=== PATIENT | female | born 1990 | race Caucasian/White ===

== ENCOUNTER 2017-05-21 09:25 | Emergency (ER) | payer OTHER, SELFPAY ==
[2017-05-21 09:26] VITALS: BP 150/35; PULSE 86; RESP 16; TEMP 36.8; O2SAT 98; BMI 35.6
--- NOTE | 2017-05-21 10:03 | ED.VISSUMM ---
- ER Visit Summary Date of Service: 05/21/17 Chief Complaint: [] Back pain after lifting heavy laundry basket History of Present Illness: The patient is a 26 F [] reports she basically lifted a laundry basket that apparently was heavier than she should thought she threw the close up in the air to shuffle them and she felt immediate pain to her back. She had no direct trauma she has been no paresthesias she was feeling fine before this event. She indicates the pain is worse when she turns breathes bends over this occurred this morning, she did not take them for the pain came in for evaluation. She has no no paresthesias and she sits perfectly still she feels back to baseline Physical Examination: [] Vitals are normal she is in no distress she is sitting in the chair in no distress when asked her to stand turn bend over she has pain to the mid T-spine level. Her head exam neck chest abdomen unremarkable lungs are clear heart tones are normal the abdomen soft nontender upper lower extreme is marked full range of motion is able to stand and walk around walk around the room without difficulty, she is a very vague pain to the mid T-spine region musculature, no real T spine pain no lumbar no cervical pain she is awake and alert walking around the room Test Results: [] Emergency Department Course and Treatment: [] Long conversation with the patient discussed imaging studies etc. she declined them she is basically here because of the pain she will be started on Toradol IM, Naprosyn Flexeril [place] No. 4 for bedtime to follow-up with her doctor return for change in symptoms Treatment Plan: [] Disposition: [] Stable home Impression: [] Back pain after lifting laundry basket This note was generated with [employer] dictation software. It may contain incorrect words, spelling, and punctuation that were not noted in review of the chart prior to signing ED Disposition - Plan for ED Patient: Chief Complaint: Back Referrals: [facility] Doctor,Out of [Primary Care Provider] -
--- NOTE | 2017-05-21 10:06 | ED.DCSUM_ITS ---
- ER Visit Summary Date of Service: 05/21/17 Chief Complaint: [] Back pain after lifting heavy laundry basket History of Present Illness: The patient is a 26 F [] reports she basically lifted a laundry basket that apparently was heavier than she should thought she threw the close up in the air to shuffle them and she felt immediate pain to her back. She had no direct trauma she has been no paresthesias she was feeling fine before this event. She indicates the pain is worse when she turns breathes bends over this occurred this morning, she did not take them for the pain came in for evaluation. She has no no paresthesias and she sits perfectly still she feels back to baseline Physical Examination: [] Vitals are normal she is in no distress she is sitting in the chair in no distress when asked her to stand turn bend over she has pain to the mid T-spine level. Her head exam neck chest abdomen unremarkable lungs are clear heart tones are normal the abdomen soft nontender upper lower extreme is marked full range of motion is able to stand and walk around walk around the room without difficulty, she is a very vague pain to the mid T-spine region musculature, no real T spine pain no lumbar no cervical pain she is awake and alert walking around the room Test Results: [] Emergency Department Course and Treatment: [] Long conversation with the patient discussed imaging studies etc. she declined them she is basically here because of the pain she will be started on Toradol IM, Naprosyn Flexeril [address] No. 4 for bedtime to follow-up with her doctor return for change in symptoms Treatment Plan: [] Disposition: [] Stable home Impression: [] Back pain after lifting laundry basket This note was generated with [employer] dictation software. It may contain incorrect words, spelling, and punctuation that were not noted in review of the chart prior to signing ED Disposition - Plan for ED Patient: Chief Complaint: Back Referrals: [facility] Doctor,Out of [Primary Care Provider] -
--- NOTE | 2017-05-21 10:06 | ED.DEP ---
ED Disposition - Plan for ED Patient: Chief Complaint: Back Instructions: ED Spasm Back No Trauma Prescriptions: Hydrocodone Bitart/Apap 5-325 [[place] 5/325] 1 tab PO QHS #4 tab Naproxen [Naprosyn] 500 mg PO BID PRN #20 tab Cyclobenzaprine [Flexeril] 10 mg PO BID #10 tab Referrals: [facility] Doctor,Out of [NON-STAFF] - Joshua Epps DO [STAFF PHYSICIAN] -
--- NOTE | 2017-05-21 10:10 | DCINST.ED_ITS ---
ED Disposition - Plan for ED Patient: Chief Complaint: Back Instructions: ED Spasm Back No Trauma Prescriptions: Hydrocodone Bitart/Apap 5-325 [[place] 5/325] 1 tab PO QHS #4 tab Naproxen [Naprosyn] 500 mg PO BID PRN #20 tab Cyclobenzaprine [Flexeril] 10 mg PO BID #10 tab Referrals: [facility] Doctor,Out of [NON-STAFF] - Joshua Epps DO [STAFF PHYSICIAN] -
[2017-05-21] MEDS: Ketorolac 60 MG/2 ML Vial IM (10:22)
[2017-05-21 10:51] VITALS: BP 136/81; RESP 18
== END 2017-05-21 10:56 | disposition home or self-care (01) ==
PROVIDERS: Emergency Provider Emergency Medicine; Family Provider Family Medicine; PCP Family Medicine
DX: M54.6 Pain in thoracic spine (principal); X50.0XXA Overexertion from strenuous movement or load, initial encounter; J45.909 Unspecified asthma, uncomplicated
CPT/HCPCS: 96372; 99283

== ENCOUNTER → 2020-02-01 13:30 | Outpatient (CLI) | payer OTHER, SELFPAY ==
[2020-02-01 13:21] VITALS: BMI 33.6
[2020-02-04 20:07] LABS: Chlamydia By Nucleic Acid AMP Negative (Negative)
[2020-02-04 21:35] LABS: HPV Reflexed? NOT INDICATED
[2020-02-04 21:36] LABS: Gonococcus By Nucleic Acid AMP Negative (Negative)
== END ==
PROVIDERS: PCP Family Medicine; Referring Provider Nurse Practitioner Women's Health; Visit Provider Nurse Practitioner Women's Health
DX: Z12.4 Encounter for screening for malignant neoplasm of cervix (principal); Z11.3 Encounter for screening for infections with a predominantly sexual mode of transmission
CPT/HCPCS: 87491; 87591; 88175; G0145

== ENCOUNTER → 2020-02-13 10:09 | Outpatient (CLI) | payer OTHER, SELFPAY ==
[2020-02-01 13:21] VITALS: BMI 33.6
--- NOTE | 2020-02-13 10:17 | US_ITS ---
STUDY: ULTRASOUND OF THE FEMALE PELVIS - COMPLETE REASON FOR EXAM: Female, 29 years old. MENORRHAGIA -- DYSMENORRHEA -- LMP 02/10/20 -- HX OF TUBAL LIGATION 2013 LMP: 02/10/2020 TECHNIQUE: Transabdominal and Transvaginal TECHNICAL QUALITY: Adequate. COMPARISON: None. FINDINGS: The uterus is retroverted and is in a midline position. The uterus measures 10.7 x 5.2 x 3.3 cm. Normal uterine cervix. The endometrium measures 7 mm in thickness, and is fluid distended. There is no demonstrated endometrial mass. There is no demonstrated myometrial mass. I.U.D. - The patient does not have an I.U.D. The right ovary is visualized. The right ovary measures 3.2 x 2.4 x 2.3 cm. There is no right ovarian cyst or ovarian mass. There is no visualized right adnexal mass or complex lesion. There is normal arterial and normal venous vascularity. The left ovary is visualized. The left ovary measures 2.5 x 2.2 x 1.7 cm. There is no left ovarian cyst or ovarian mass. There is no visualized left adnexal mass or complex lesion. There is normal arterial and normal venous vascularity. There is no fluid in the cul-de-sac. The pre void volume of the bladder was 623 ml. US/Transvaginal Non- IMPRESSION: Fluid distended endometrium. Otherwise, unremarkable exam Electronically Signed: Alessandro Bañuelos DO at 11:48 EST Tel , Service support ,
--- NOTE | 2020-02-13 10:17 | US_ITS ---
STUDY: ULTRASOUND OF THE FEMALE PELVIS - COMPLETE REASON FOR EXAM: Female, 29 years old. MENORRHAGIA -- DYSMENORRHEA -- LMP 02/10/20 -- HX OF TUBAL LIGATION 2013 LMP: 02/10/2020 TECHNIQUE: Transabdominal and Transvaginal TECHNICAL QUALITY: Adequate. COMPARISON: None. FINDINGS: The uterus is retroverted and is in a midline position. The uterus measures 10.7 x 5.2 x 3.3 cm. Normal uterine cervix. The endometrium measures 7 mm in thickness, and is fluid distended. There is no demonstrated endometrial mass. There is no demonstrated myometrial mass. I.U.D. - The patient does not have an I.U.D. The right ovary is visualized. The right ovary measures 3.2 x 2.4 x 2.3 cm. There is no right ovarian cyst or ovarian mass. There is no visualized right adnexal mass or complex lesion. There is normal arterial and normal venous vascularity. The left ovary is visualized. The left ovary measures 2.5 x 2.2 x 1.7 cm. There is no left ovarian cyst or ovarian mass. There is no visualized left adnexal mass or complex lesion. There is normal arterial and normal venous vascularity. There is no fluid in the cul-de-sac. The pre void volume of the bladder was 623 ml. US/Pelvic (Non ) IMPRESSION: Fluid distended endometrium. Otherwise, unremarkable exam Electronically Signed: Alessandro Bañuelos DO at 11:48 EST Tel , Service support ,
== END ==
LOC: OPUS 10:12
PROVIDERS: PCP Family Medicine; Referring Provider Nurse Practitioner Women's Health; Visit Provider Nurse Practitioner Women's Health
DX: N94.6 Dysmenorrhea, unspecified (principal); N92.0 Excessive and frequent menstruation with regular cycle
CPT/HCPCS: 76830; 76856

== ENCOUNTER 2022-01-30 07:49 | Emergency (ER) | payer OTHER, SELFPAY ==
[2022-01-30 07:50] VITALS: BP 140/104; PULSE 108; RESP 18; TEMP 36.6; O2SAT 98; BMI 37.0
[2022-01-30 08:15] VITALS: O2SAT 98
--- NOTE | 2022-01-30 08:22 | RAD_ITS ---
STUDY: X-RAY CHEST REASON FOR EXAM: Female, 31 years old. Nonproductive cough and wheezing, COVID 3 weeks ago TECHNIQUE: PA and lateral views of the chest. COMPARISON: None. FINDINGS: EKG electrodes are seen. Hyperinflation. The lungs are clear. There is no demonstrated pleural abnormality. Normal size heart. Normal mediastinum and mega. Normal visualized pulmonary arteries. Normal visualized aortic arch and descending thoracic aorta. Normal visualized thoracic spine. Normal visualized ribs, clavicles, and shoulders. There is no demonstrated abnormality of the visualized soft tissue structures of the upper abdomen. RAD/Chest PA and Lateral IMPRESSION: Hyperinflation. The lungs are clear. Electronically Signed: Mann Baez MD at 8:45 EST ,
[2022-01-30] MEDS: Albuterol 2.5 MG/3 ML VIAL.NEB. INHALATION ×3 (08:25→09:55)
[2022-01-30 08:26] VITALS: PULSE 94; RESP 17; O2SAT 99
--- NOTE | 2022-01-30 08:31 | EDS_ITS ---
HPI History of Present Illness Chief Complaint: Shortness of Breath Detail of Chief Complaint: Shortness of breath, nonproductive cough and wheezing Informant: patient Onset/Context/Timing Onset: Days (Onset of illness 4 to 5 days ago) Context: sudden Timing: Continuous and Waxes and wanes Quality: Positive for Dyspnea on exertion and Wheezing; Negative for Orthopnea or PND Current Severity: Mild Maximum Severity: Moderate Worsened by: Exertion and Coughing; Not Worsened By Lying flat Relieved by: Nothing Associated Symptoms cough, rhinorrhea, fever and sore throat; Negative for post nasal drip, ear pain, subjective, chills, sweats, clear sputum, white sputum, yellow sputum or green sputum Chest Pain: Positive for None Narrative Narrative: Patient is a 31-year-old female with history of asthma who was diagnosed with COVID 3 weeks ago. She states over the past 4 to 5 days she has had runny nose, congestion, sore throat and a nonproductive cough. She has been using her inhaler more frequently. He has not been on prednisone in the last 3 to 6 months. She had a documented fever of 103 3 days ago. She denies ear pain or drainage. She denies headache. She denies ocular, visual or auditory symptoms. She denies neck pain or stiffness. She does complain of tightness in her chest. There is no history of VTE. Denies leg pain, swelling discoloration. S he does report nausea without vomiting or diarrhea PE Risk Factors: Negative for Cancer, OCP + Smoking + > 35, Prior DVT or PE, Recent immobilization, Recent surgery or Recent travel Prior similar symptoms: Yes Recent Illness/Hospitalization: No PFSH PFSH Medical History Anxiety Asthma COVID-19 Weight gain Home Medications desogestrel 0.15 mg-ethinyl estradiol 0.03 mg tablet (Apri) 1 tab PO QDAY #84 tabs 03/22/21 [Rx Last Taken Unknown] albuterol sulfate 90 mcg/actuation aerosol inhaler 2 puff inhalation Q6H PRN shortness of breath or wheezing #8.5 grams 08/08/21 [Rx Last Taken Unknown] budesonide-formoterol HFA 160 mcg-4.5 mcg/actuation aerosol inhaler 2 puff inhalation BID #10.2 grams 08/08/21 [Rx Last Taken Unknown] cetirizine 10 mg capsule (Zyrtec) 10 mg PO DAILY #30 caps 08/08/21 [Rx Last Taken Unknown] montelukast 10 mg tablet (Singulair) 10 mg PO DAILY #30 tabs 08/08/21 [Rx Last Taken Unknown] inhalational spacing device (Aerochamber MV spacer) #1 ea 01/30/22 [Rx Last Taken Unknown] prednisone 20 mg tablet 60 mg PO DAILY #15 TABLETS 01/30/22 [Rx Last Taken Unknown] Allergy/AdvReac Type Severity Reaction Status Date / Time Penicillins Allergy Rash Verified 01/30/22 07:50 Family History Mother Endometriosis Grandmother Endometriosis Surgical History History of cholecystectomy History of tubal ligation Hx of tonsillectomy Social History household members: significant other and children number of children: 2 current occupational status: employed current occupation: [employer] history of recent travel: No sexually active: Yes Smoking Status: Never smoker alcohol intake: current alcohol intake frequency: a few times a month substance use type: does not use what type of physical activity do you participate in: walking seatbelt use: always do you feel safe at home: Yes additional social history: - Azael CASTAÑEDA GARRY ED Constitutional Constitutional ED: Reports fever(s); Denies chills, sweats or weight loss Eyes Eyes: Denies blurry vision, change in vision or diplopia ENT ENT ED: Reports rhinorrhea and sore throat; Denies ear pain Cardiovascular Cardiovascular: Denies chest pain, orthopnea, palpitations, paroxysmal nocturnal dyspnea or racing heartbeat Respiratory/Chest Respiratory/Chest: Reports cough, dyspnea and dyspnea on exertion; Denies orthopnea, paroxysmal nocturnal dyspnea or sputum Gastrointestinal Gastrointestinal: Reports nausea; Denies abdominal pain, constipation, diarrhea, melena or vomiting Genitourinary Genitourinary ED: Denies dysuria, hematuria or urinary frequency Musculoskeletal Musculoskeletal: Denies arthralgias, back pain, myalgias or neck pain Integumentary Denies Abrasions or rash Neurologic Neurologic: Denies headache(s), paresthesias or weakness Endocrine Endocrinology: Denies cold intolerance or heat intolerance Hematologic/Lymphatic Hematologic/Lymphatic: Denies easy bleeding or easy bruising EXAM Physical Exam Const Vital Signs: 01/30/22 07:50 01/30/22 08:15 01/30/22 08:26 Temperature 97.9 F Temperature Source Temporal Pulse Rate 108 H 94 Respiratory Rate 18 17 Respiratory Effort Short of Breath Respiratory Pattern Tachypnea Blood Pressure 140/104 H Blood Pressure Mean 116 Pulse Ox 98 Oxygen Delivery Method Room Air Room Air 01/30/22 08:26 Temperature Temperature Source Pulse Rate Respiratory Rate Respiratory Effort Respiratory Pattern Blood Pressure Blood Pressure Mean Pulse Ox 99 Oxygen Delivery Method Room Air Positive well nourished, well developed and obese General Appearance ED: well developed and NAD Nutritional Appearance: obese HEENT Reports moist mucous membranes HEENT Narrative: Head is atraumatic normocephalic. Ears normal. TMs normal. Nares patent. No evidence of epistaxis. No obvious drainage. Posterior pharynx out erythema or exudate. Uvula midline. No deviation tongue with protrusion. Eyes PERRL and EOMs intact bilaterally General Eye ED: Negative for pale conjunctiva or scleral icterus Neck no lymphadenopathy, supple, no meningeal signs and no JVD Resp normal respiratory effort and No clear to auscultation bilaterally Auscultation: wheezes expiratory wheezes and throughout Cardio regular rhythm, S1 normal heart sound, S2 normal heart sound and no murmurs Rate: tachycardic GI non-tender, non-distended and no masses Palpation: soft Extremity normal to inspection General Extremety ED: Negative for edema or tenderness General Extremity: Negative for edema Neuro oriented x3, CN's II-XII intact bilaterally and no sensory deficits noted Sensorium / Orientation: alert Psych mental status grossly normal Skin no wounds and skin turgor normal MDM MDM MDM Narrative Medical decision making narrative: Suspect patient has acute bronchitis exacerbation of her asthma. Will obtain chest x-ray to evaluate for pneumonia. Patient was treated with albuterol x3. Vital signs were remarkable for tachycardia initially. Patient was assessed at 0925. This is after her second treatment. Coughing has improved markedly. There is increased air movement. There is no expiratory wheezing noted. She rarely uses an inhaler. She does not have a spacer. Radiography Chest X-Ray - ED: 2 View and Read by ED Physician (2 view chest x-ray independently interpreted by me is negative. There is normal cardiac silhouette and size. Perihilar regions normal. Lung parenchyma is normal. Osseous trucks is normal.) Diagnostic Testing: Clinical Impression(s) from Imaging Studies Chest X-Ray 01/30/22 08:22 IMPRESSION: Hyperinflation. The lungs are clear. Electronically Signed: Mann Baez MD at 8:45 EST , Rhythm Strip Rhythm Strip: Sinus Tach Rate: 102 Ectopy: None Discharge Plan Triage Chief Complaint: Shortness of Breath ED Provider: Dorian Lloyd Dx/Rx/DC Orders Clinical Impression: Upper respiratory infection with cough and congestion, Asthma exacerbation Instructions: ED URI, Viral, No Abx (Adult) Prescriptions: New (DME) Aerochamber MV Spacer See Rx Instructions .Route Qty: 1 0RF Rx Instructions: As directed prednisone 20 mg tablet 60 mg PO DAILY Qty: 15 0RF No Action desogestrel-ethinyl estradiol [Apri] 0.15-0.03 mg tablet 1 tab PO QDAY Qty: 84 4RF albuterol sulfate 90 mcg/actuation HFA aerosol inhaler 2 puff INHALATION Q6H PRN (Reason: shortness of breath or wheezing) Qty: 8.5 12RF Zyrtec 10 mg capsule 10 mg PO DAILY Qty: 30 12RF montelukast [Singulair] 10 mg tablet 10 mg PO DAILY Qty: 30 12RF budesonide-formoterol 160-4.5 mcg/actuation HFA aerosol inhaler 2 puff inhalation BID Qty: 10.2 12RF Primary Care Provider: Gabbie Cortez NP Referrals: Gabbie Cortez NP, BUSINESS PROCESS REPRESENTATIVE-C [Primary Care Provider] - 10-14 Days if not better Activity Restrictions/Additional Instructions: Use spacer with your inhaler. Recommend every 2-4 hours while awake for the next 2 to 3 days and every 4-6 hours as needed for cough and wheezing. 4 to 6 puffs albuterol metered-dose inhaler with a spacer is equivalent to a aerosol treatment. You may repeat every 15 minutes x 3. If you are still having difficulty breathing recommend coming to the emergency department. Disposition Disposition: Home, Self Care
[2022-01-30 10:09] VITALS: BP 140/87; PULSE 82; RESP 16; O2SAT 96
== END 2022-01-30 10:09 | disposition home or self-care (01) ==
PROVIDERS: Emergency Provider Emergency Medicine; PCP Nurse Practitioner; Visit Provider Emergency Medicine
DX: J45.901 Unspecified asthma with (acute) exacerbation (principal); J06.9 Acute upper respiratory infection, unspecified; F41.9 Anxiety disorder, unspecified; Z79.899 Other long term (current) drug therapy
CPT/HCPCS: 71046; 94640; 99284

== ENCOUNTER → 2023-02-14 | Outpatient (CLI) | payer OTHER, SELFPAY ==
--- NOTE | 2023-02-14 09:44 | US_ITS ---
STUDY: SUPERFICIAL ULTRASOUND - SOFT TISSUE NECK REASON FOR EXAM: Female, 32 years old. lump R lat neck TECHNIQUE: A superficial ultrasound was performed with real-time and static love-scale imaging. COMPARISON: None. FINDINGS: Multiple longitudinal and transverse ultrasound images of the right-sided neck confirm lymphadenopathy with 3 discrete lymph nodes measuring 1.1 x 3.1 cm, 0.7 x 2.0 cm, 0.7 x 2.[address] of the neck with contrast would be useful. US/Head/Neck Soft Tissue IMPRESSION: Ultrasound confirms right jugular lymphadenopathy in correlation with CT the neck with contrast would be useful for Electronically Signed: Walt Jvaier MD at 19:12 EST ,
== END | disposition home or self-care (01) ==
LOC: US 09:41
PROVIDERS: PCP Nurse Practitioner; Referring Provider Nurse Practitioner; Visit Provider Nurse Practitioner
DX: R59.1 Generalized enlarged lymph nodes (principal)
CPT/HCPCS: 76536

== ENCOUNTER → 2023-03-06 | Outpatient (CLI) | payer OTHER, SELFPAY ==
--- NOTE | 2023-03-06 17:51 | CT_ITS ---
STUDY: CT SOFT TISSUE NECK WITH CONTRAST REASON FOR EXAM: Female, 32 years old. 3 dicrete lymphnodes enlarged -- no pre auth needed REf [id number] RADIATION DOSAGE (If Supplied By Facility): CTDIvol = ( 15.49 ) mGy, DLP = ( 506.91 ) mGycm TECHNIQUE: The patient was scanned in a multi-detector CT scanner. High resolution transaxial imaging was performed following intravenous administration of IV 100mL Isovue-370. Sagittal and coronal images were reconstructed. Individualized dose optimization techniques were used for this CT. COMPARISON: Ultrasound 02/14/2023 FINDINGS: Normal bilateral parotid glands. Normal bilateral visual and stock associate spaces. Normal bilateral parapharyngeal spaces. Normal bilateral carotid spaces. Normal bilateral sublingual and submandibular glands and spaces. Normal visualized nasopharynx. Normal retropharyngeal space. Normal perivertebral space. Normal visualized bilateral faucial tonsils. The visualized tongue, tongue base and oropharynx are normal. There is bilateral jugular lymphadenopathy at the level of fluoroscopy the mouth as well as several small bilateral posterior triangle lymph nodes. The largest discrete lymph node is a right jugular lymph node at the level of fluoroscopy the mouth measuring 1.4 x 2.4 cm likely corresponding to the largest lymph node seen on recent ultrasound. There is no demonstrated solid or cystic mass lesion. There is no abnormal contrast enhancement. Normal epiglottis, bilateral vallecula and hypopharynx. The pre-epiglottic and paraglottic adipose spaces are normal. Normal visualized bilateral piriform sinuses, aryepiglottic folds, vocal cords, and arytenoid-cricoid articulations. Normal subglottic trachea. Normal bilateral lobes of the thyroid gland. Normal visualized pulmonary apices. Normal visualized paranasal sinuses. Normal visualized cervical spine. CT/Soft Tissue Neck WITH Contrast IMPRESSION: Bilateral jugular lymphadenopathy at the level of fluoroscopy the mouth with some prominent but normal sized bilateral posterior triangle lymph nodes. These may be reactive but metastatic disease or lymphoma cannot be excluded. No obvious mucosal mass is identified. Electronically Signed: Walt Javier MD at 23:03 EST ,
== END | disposition home or self-care (01) ==
LOC: CT 17:49
PROVIDERS: PCP Nurse Practitioner; Visit Provider Nurse Practitioner
DX: R59.1 Generalized enlarged lymph nodes (principal)
CPT/HCPCS: 70491; Q9967

== ENCOUNTER 2023-03-26 07:34 | Outpatient (CLI) | payer OTHER, SELFPAY ==
[2023-03-26] VITALS (14 sets, daily range): BP systolic 113–131; BP diastolic 75–94; PULSE 62–79; RESP 14–19; TEMP 37; O2SAT 95–100
--- NOTE | 2023-03-26 | IMM_PTH ---
PATHOLOGY RESULTS PATIENT: JHOAN BROOKS LOC: CT U#:[id number] AGE/SX: 32/F ROOM: RE03/26/[address]: EZ Aguero : 1990 BED: DIS: 03/26/2023 SPEC #: [id number] RECD: 03/27/23 13:36 STATUS: JAUN REQ #: [id number] ALBERTO: 03/26/23 00:[address]: Gabbie Cortez NP DEPT: IMMUNOHISTOCHEMISTRY RECD BY: Cari Garber ENTERED: 03/27/23 13:39 SP TYPE: IMMUNO Tissues: Lymph node of neck, NOS Procedures: BCL-2 (add) BCL-6 (add) CD10 (add) CD20 (add) CD23 (add) CD3 (add) CD43 (add) CD45 (add) CD5 (add) CD79A (add) CYCLIN (add) KI-67 (initial) PHYSICIAN & INSTITUTION [address] [address] SPECIMEN INFORMATION: Tissue Source: Right cervical lymph node Clinical Info: Enlarged right lateral lymph node Specimen Number: [id number] CPT code: 40647, 87639 x11 METHODOLOGY: Deparaffinized sections of prefer/formalin-fixed tissue or PAP/DQ stained slides are incubated with monoclonal/polyclonal antibodies/oligonucleotide probes. Localization is made via biotin free immunoperoxidase method. Appropriate controls are performed and reacted as expected. Results on target cell population are indicated in the following table: RESULTS: ANTIBODY / CLONE RESULT CD3 (PS1) positive CD5 (SP10) positive CD20 (L26) positive CD43 (L60) positive CD45 (RP2/18) positive CD79a (11E3) positive CD10 (56C6) negative CD23 (1B12) negative BCL-2 (bcl-2/100/D5) positive BCL-6 (BQ502W/A8) negative Cyclin D1/BCL-1 (SP4) negative Ki-67 (30-9) positive, low These tests were developed and their performance characteristics determined by [facility]. They may not have been cleared or approved by the U.S. Food and Drug Administration. The FDA has determined that such clearance or approval is not necessary. The above immunohistochemical/dualISH markers are ordered and reviewed by the Pathologist. INTERPRETATION: Right cervical lymph node, CT-guided core biopsy: Benign lymph node tissue. SJ:ac 03/28/2023 Case has been reviewed in consultation with Dr. Bell who concurs with the above diagnosis. IDC:AM
--- OUTSIDE RECORDS SUMMARY | 2023-03-26 07:48 | XMS RPT_ITS | CCD ---
Author Name Unknown Address [address] [place] [address] Organization [facility] Care Team Providers Care Machine Sizer Name Role Phone AMBROSIO MILTON Unavailable Unavailable AMBROSIO MILTON Unavailable Unavailable NO REFERRING DR Unavailable Unavailable AMBROSIO MILTON Unavailable Unavailable AMBROSIO MILTON Unavailable Unavailable Adam Valadez Primary Care Provider Allergies Allergy Classification Reported Allergen(s) Allergy Type Date of Onset Reaction(s) Facility (2 sources) Penicillins; Translations: [PENICILLINS] Propensity to adverse reactions to drug (disorder) 1 [facility] Other [place] [facility] Medications Current Medications Medication Drug Class(es) Dates Sig (Normalized) Sig (Original) albuterol 0.83 mg/ml inhalant solution (1 source) beta2-Adrenergic Agonist albuterol (PROVENTIL) (2.5 MG/3ML) 0.083% nebulizer solution Take 2.5 mg by nebulization every 6 hours as needed for Wheezing 0 Active albuterol sulfate HFA 108 (90 Base) MCG/ACT inhaler (1 source) Start: 09-03-2019 End: 06-13-2030 take 2 puff(s) by inhalation every six hours as needed for wheezing albuterol sulfate HFA 108 (90 Base) MCG/ACT inhaler Inhale 2 puffs into the lungs every 6 hours as needed for Wheezing 1 Inhaler 11 09/03/2019 06/13/2030 Active cetirizine hydrochloride 10 mg oral tablet (1 source) Histamine-1 Receptor Antagonist Start: 07-24-2019 take 1 tablet by mouth once daily as needed cetirizine (ZYRTEC) 10 MG tablet Take 1 tablet by mouth daily as needed for Allergies 90 tablet 3 07/24/2019 Active 168 hr ethinyl estradiol 0.68583 mg/hr / norelgestromin 0.28216 mg/hr transdermal system (1 source) Progestin, Estrogen Start: 05-05-2020 apply 1 dose transdermal route every week XULANE 150-35 MCG/24HR Place 1 patch onto the skin once a week 0 05/05/2020 Active montelukast 10 mg oral tablet (1 source) Leukotriene Receptor Antagonist Start: 06-03-2019 take 1 tablet by mouth once daily montelukast (SINGULAIR) 10 MG tablet Take 1 tablet by mouth nightly 30 tablet 11 06/03/2019 Active naproxen 500 mg oral tablet (1 source) Nonsteroidal Anti-inflammatory Drug Start: 06-13-2020 End: 07-13-2020 take 1 tablet by mouth twice daily at mealtime naproxen (NAPROSYN) 500 MG tablet Indications: Mid-back pain, acute Take 1 tablet by mouth 2 times daily (with meals) 60 tablet 0 06/13/2020 07/13/2020 Active Problems Active Problems Problem Classification Problem Date Documented Date Episodic/Chronic Anxiety disorders (1 source) Anxiety; Translations: [Situational anxiety] 12-01-2014 Chronic Asthma (2 sources) Unspecified asthma, uncomplicated; Translations: [Asthmatic bronchitis] Onset: 12-02-2016 12-01-2014 Chronic Other skin disorders (1 source) Acne; Translations: [Acne] 12-03-2016 Episodic Other upper respiratory disease (1 source) Allergic rhinitis; Translations: [Allergic rhinitis] 12-01-2014 Chronic Spondylosis; intervertebral disc disorders; other back problems (1 source) Acute thoracic back pain; Translations: [Mid-back pain, acute] Episodic Unclassified (1 source) Other specified postprocedural states; Translations: [OTH SPECIFIED POSTPROCED] Onset: 12-02-2016 Past or Other Problems Problem Classification Problem Date Documented Da te Episodic/Chronic Acute bronchitis (1 source) Acute bronchitis, unspecified; Translations: [ACUTE BRONCHITIS UNSPECI] Onset: 12-02-2016 Episodic Diabetes or abnormal glucose tolerance complicating ; childbirth; or the puerperium (1 source) Personal history of gestational diabetes; Translations: [History of gestational diabetes] Onset: 05-14-2019 05-14-2019 Episodic Other aftercare (1 source) Other detention (current) drug therapy; Translations: [OTH HALF-WAY CURRENT DR] Onset: 12-02-2016 Episodic Other lower respiratory disease (2 sources) Cough; Translations: [COUGH] Onset: 12-02-2016 Episodic Other nutritional; endocrine; and metabolic disorders (1 source) Failure to lose weight; Translations: [Unable to lose weight] Onset: 05-14-2019 05-14-2019 Episodic Results Test Name Value Interpretation Reference Range Facil ity Encounters Encounter Date Encounter Type Care Provider Facility Start: 06-13-2020 End: 06-13-2020 Subsequent hospital visit by physician Alejandra Christopher Work Phone: [facility] X-Ray Procedures Date Procedure Procedure Detail Performing Clinician Start: 04-25-2018 Follow-up visit Plan of Treatment Date Care Activity Detail Author Start: 11-10-2022 DTaP/Tdap/Td vaccine (2 - Td) DTaP/Tdap/Td vaccine (2 - Td) [facility] Work Phone: Start: 11-17-2019 Influenza vaccination Flu vaccine (# 1) [facility] Work Phone: Start: 12-14-2017 Screening for malign ant neoplasm of cervix Cervical cancer screen [facility] Work Phone: Start: 2006 COVID-19 Vaccine (1) COVID-19 Vaccin e (1) [facility] Work Phone: Start: 2005 HIV screening HIV screen [facility] Work Phone: Start: 1996 Pneumococcal 0-64 ye ars Vaccine (1 of 1 - PPSV23) Pneumococcal 0-64 years Vaccine (1 of 1 - PPSV23) [facility] Work Phone: Start: 06-24-1991 Varicella vaccine (1 of 2 - 2-dose childhood series) Varicella vaccine (1 of 2 - 2-dose childhood series) [facility] Work Phone: Start: 1990 Hepatitis C screening Hepatitis C sc reen [facility] Work Phone: End: 06-13-2020 XR Thoracic Spine 2 VW XR Thoracic Spine 2 VW Imaging Routine Mid-back pain, acute 1 Occurrences starting 06/13/2020 until 06/13/2020 [employer] Work Phone: Payers Date Payer Category Payer Unknown [employer] [address] [id number] 2018-Present [phone] [address] [place] [address] [id number] Unknown [id number] Social History Date Type Detail Facility Start: 06-13-2020 Tobacco smoking stat [facility] Former smoker [facility] [employer] Work Phone: End: 11-01-2014 History of tobacco use Current smoker [employer] Work Phone: End: 11-01-2014 History of tobacco use Cigarette Smoker [employer] Work Phone: Start: 06-13-2020 Cigarettes smoked current (pack per day) - Reported [employer] Work Phone: Start: 06-13-2020 Tobacco use and exposure Never used [employer] Work Phone: Start: 06-13-2020 Alcohol intake Current drinke r of alcohol (finding) [employer] Work Phone: Start: 07-31-2018 History SDOH Alcohol Frequency 2 [employer] Work Phone: Start: 07-31-2018 History SDOH Alcohol Binge 1 [employer] Work Phone: Start: 07-31-2018 History SDOH Social Connections Phone 5 [facility] Work Phone: Start: 07-31-2018 History SDOH Social Connections Living 3 [employer] Work Phone: Sex Assigned At Not on file [employer] Work Phone: Exposure to SARS-CoV -2 (event) Not sure [employer] Work Phone: Summary Purpose Family History No Family History Records FoundNo Family History Records FoundNo Family History Records FoundNo Family History Records Found Advance Directives No Advanced Directives Records FoundDocuments on File Type Date Recorded 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 This clinical summary was aggregated from multiple sources. Caution should be exercised in using it in the provision of clinical care. This summary normalizes information from multiple sources, and as a consequence, information in this document may materially change the coding, format and clinical context of patient data. In addition, data may be omitted in some cases. CLINICAL DECISIONS SHOULD BE BASED ON THE PRIMARY CLINICAL RECORDS. [employer] [facility]. provides no warranty or guarantee of the accuracy or completeness of information in this document.
[2023-03-26 07:52] LABS: Absolute Lymphocyte Count 2.63 X10^3/uL (0.83-4.51); Absolute Neutrophil Count 4.4 X10^3/uL (2.0-7.7); Basophil# 0.05 X10^3/uL; Basophil% 0.6 % (0-1); Eosinophil# 0.17 X10^3/uL; Eosinophils% 2.2 % (0-5); Hemoglobin 12.8 g/dL (12.0-15.0); Lymphocyte # 2.63 X10^3/ul (0.83-4.51); Lymphocyte % 33.7 % (19-41); Mean Corpuscular Volume 87.5 fL (81-99); Mean Platelet Vol. 10.7 fl (6.2-12.0); Monocyte# 0.58 X10^3/uL; Monocyte% 7.4 % (0-10); NRBC Flagged by Analyzer 0 % (0-5); Neutrophil # 4.35 X10^3/uL (2.7-7.7); Neutrophil % 55.7 % (47-70); Platelet Count 271 K/mm3 (150-450); RBC Distribution Width CV 13.4 % (11.6-14.6); RBC Distribution Width SD 43.1 fl (35.1-43.9); Red Blood Count 4.57 M/mm3 (4.2-5.4); White Blood Count 7.8 K/mm3 (4.4-11.0)
[2023-03-26 08:00] LABS: Prothrombin Time (Protime)PT. 12.8 SECONDS (11.7-14.9)
[2023-03-26 08:01] LABS: Partial Thromboplast Time 26.1 Seconds (24.1-36.2)
[2023-03-26] MEDS: 0.9% Normal Saline (250mL Bag) 250 ML 15 ML IV (08:47)
[2023-03-26] MEDS: 0.9% Saline Lock 10 ML Syringe IV (08:47)
[2023-03-26] MEDS: Midazolam 2 MG/2 ML Syringe IV (09:16)
[2023-03-26] MEDS: fentaNYL 100 MCG/2 ML Ampul IV (09:17)
[2023-03-26] MEDS: Lidocaine 2% (20 ml mdv) 20 ML Vial INFILT (09:34)
--- NOTE | 2023-03-26 09:45 | ASPIGT_PTH ---
PATHOLOGY RESULTS PATIENT: JHOAN BROOKS LOC: CT U#:[id number] AGE/SX: 32/F ROOM: RE03/26/[address]: EZ Aguero : 1990 BED: DIS: 03/26/2023 SPEC #: [id number] RECD: 03/26/23 11:56 STATUS: JAUN RERichard #: [id number] ALBERTO: 03/26/23 09:[address]: Gabbie Cortez NP DEPT: SURGICAL PATHOLOGY RECD BY: Brandee Ivy ENTERED: 03/26/23 11:58 SP TYPE: ASP RAD Tissues: Lymph node of neck, NOS Procedures: FNA Specimen Adequacy Special Stain Group II Surgery Specimen Level IV Surgery Specimen Level V Imprint (control) HEADER OPERATION: CT-guided right lateral neck lymph node PRE-OP DIAGNOSIS: Enlarged right lateral lymph node TISSUE SUBMITTED: Right cervical lymph node 20-gauge core x6 MICROSCOPIC DIAGNOSIS Right cervical lymph node, CT-guided core biopsy: Fragments of benign lymph node tissue. See comment. DANGELO:ac 03/28/2023 COMMENT The specimen is evaluated at the time of biopsy by Dr. Beard. Immediate Evaluation = Numerous lymphocytes are noted. Immunohistochemistry ([id number]) supports the above diagnosis. Flow cytometry study from [employer] is canceled due to low cell yield. Clinical correlation and appropriate follow up are necessary. Case has been reviewed in consultation with Dr. Bell who concurs with the above diagnosis. IDC:AM MICROSCOPIC DESCRIPTION Slides are reviewed. GROSS DESCRIPTION Received in fixative is one container labeled with the patient's name and designated right neck lymph node. The specimen consists of multiple irregular fragments of light overton soft tissue that in aggregate measure 0.5 x 0.1 x <0.1 cm. The specimen is totally submitted in one cassette. One core is submitted for flow cytometry studies. Two touch imprints are prepared at the time of core biopsy. / DANGELO:ac 03/26/2023 TC:5 CPT: 47210, 54292
--- NOTE | 2023-03-26 10:39 | PCM.OP.PRO ---
Procedure Report Date of Procedure: 03/26/23 Assessment & Plan Assessment/Plan (1) Lymphadenopathy: PLAN: PROCEDURE: CT GUIDED CORE LYMPH NODE BIOPSY ORDERING PROVIDER: Gabbie Cortez CNP INDICATION: Female, 32 years old. Right cervical lymphadenopathy. PROVIDER: JULIA Krishnamurthy CONSENT: Written informed consent was obtained having explained the risks, benefits and alternatives in detail with the patient who accepted the risks and agreed to proceed. Laboratory review and clinical assessment was performed. PRE-PROCEDURE SEDATION ASSESSMENT: Current history and physical dictated by referring physician and reviewed. No clinical changes since date of exam. Patient has an ASA Class of 1. PROCEDURAL SEDATION PROTOCOL: The Drugs used were: 2 mg Versed, IV, and 50 mcg Fentanyl, IV. The sedation time was: 27 minutes, starting at 9:16 AM and terminated at 9:43 AM. The procedural sedation protocol was independently monitored by the department nurse. RADIATION DOSAGE (If Supplied By Facility): CTDIvol = 12.36 mGy, DLP = 129.9 mGycm Individualized dose optimization techniques were used for this CT. TECHNIQUE: The patient was placed in a supine position. A noncontrast CT was performed to localize the lesion in the right lateral neck. The skin surface was prepped and draped in a sterile fashion. 2% lidocaine was used for local anesthesia. Using CT guidance, a 20-gauge coaxial biopsy device was advanced to the periphery of the lesion. A total of 6 core specimens were obtained. Specimens were microscopically reviewed by pathology in the CT suite and placed in formalin solution, as well as RPMI. The biopsy needle was removed and a sterile dressing was applied to the biopsy site. The patient tolerated the procedure well without adverse event. A negative biopsy does not exclude malignancy. Further imaging or clinical followup based on patient condition and degree of clinical suspicion for malignancy. Suggest rebiopsy, if biopsy results do not match with clinical scenario. IMPRESSION: 1. CT directed core needle biopsy of the right cervical lymph node using CT image guidance with image documentation as described. Pathology results are pending. 2. Procedural Sedation protocol utilized with independent monitoring by the department nurse. Procedures Radiology Radiology CT Procedures: 58893 Biopsy Lymph Node/gland/etc
== END 2023-03-26 23:59 | disposition home or self-care (01) ==
LOC: CT 07:38
PROVIDERS: Radiology Diagnostic Radiology; PCP Nurse Practitioner; Referring Provider Nurse Practitioner; Visit Provider Nurse Practitioner
DX: Z01.818 Encounter for other preprocedural examination (principal); C85.90 Non-Hodgkin lymphoma, unspecified, unspecified site; R59.1 Generalized enlarged lymph nodes
CPT/HCPCS: 38505; 36415; 77012; 85025; 85610; 85730; 88172; 88305; 88307; 88313; 88341; 88342; 99156; J7050; A4216

== ENCOUNTER → 2023-04-23 | Outpatient (CLI) | payer OTHER, SELFPAY ==
--- NOTE | 2023-04-23 12:06 | US_ITS ---
STUDY: THYROID ULTRASOUND REASON FOR EXAM: Female, 32 years old. THYROID CANCER, NECK MASS TECHNIQUE: Ultrasound evaluation of the thyroid was performed with real-time and static love-scale imaging. COMPARISON: None. FINDINGS: RIGHT LOBE: The right lobe of the thyroid gland measures 4.7 cm x 2 cm x 1.8 cm. There is a homogeneous echotexture. There is a 1.8 cm x 1.2 cm x 1.2 cm solid and cystic complex nodule in the midportion of the right lobe of the thyroid with calcifications. Biopsy recommended. LEFT LOBE: The left lobe of the thyroid gland measures 4.3 cm x 1.8 cm x 1.1 cm. There is a homogeneous echotexture. There are no demonstrated solid, cystic or complex lesions. ISTHMUS: The isthmus measures 2 mm. A dominant lymph node is seen in the right cervical region measuring 2.4 cm x 1 cm x 0.6 cm. A dominant lymph node in the left cervical region measuring 3 cm x 1.5 cm x 1.2 cm seen. US/Thyroid IMPRESSION: 1.8 cm x 1.2 cm x 1.2 cm complex nodule in the midportion of the right lobe of the thyroid. Calcifications are seen within it. Biopsy recommended. Enlarged bilateral cervical nodes. Electronically Signed: Mann Baez MD at 15:01 EST ,
--- OUTSIDE RECORDS SUMMARY | 2023-04-23 16:25 | XMS RPT_ITS | CCD ---
Author Name Unknown Address [address] [place] [address] Organization [facility] Care Team Providers Care Captain Waiter/Waitress Name Role Phone AMBROSIO MILTON Unavailable Unavailable AMBROSIO MILTON Unavailable Unavailable NO REFERRING DR Unavailable Unavailable AMBROSIO MILTON Unavailable Unavailable AMBROSIO MILTON Unavailable Unavailable Adam Valadez Primary Care Provider [phone] Allergies Allergy Classification Reported Allergen(s) Allergy Type Date of Onset Reaction(s) Facility (2 sources) Penicillins; Translations: [PENICILLINS] Propensity to adverse reactions to drug (disorder) 1 [facility] Other [place] [facility] Medications Current Medications Medication Drug Class(es) [...] 3 07/24/2019 Active 168 hr ethinyl estradiol 0.48828 mg/hr / norelgestromin 0.63675 mg/hr transdermal system (1 source) Progestin, Estrogen [...] 05-14-2019 Episodic Other aftercare (1 source) Other complementary health therapists (current) drug therapy; Translations: [OTH CORRECTION CURRENT DR] Onset: 12-02-2016 Episodic Other lower [...] visit by physician Alejandra Christopher Work Phone: [facility] X-Ray Procedures Date Procedure Procedure Detail [...] acute 1 Occurrences starting 06/13/2020 until 06/13/2020 [employer] Work Phone: Payers Date Payer Category Payer Unknown [employer] [address] [id number] 2018-Present [phone] [address] [place] [address] [id number] Unknown [id number] Social History Date Type Detail Facility Start: 06-13-2020 Tobacco smoking stat [facility] Former smoker [facility] Work Phone: End: 11-01-2014 History of tobacco use Current smoker [employer] Work Phone: End: 11-01-2014 History of tobacco use Cigarette Smoker [employer] Work Phone: Start: 06-13-2020 Cigarettes smoked current (pack per day) - Reported [employer] Work Phone: Start: 06-13-2020 Tobacco use and exposure Never used [employer] Work Phone: Start: 06-13-2020 Alcohol intake Current drinke r of alcohol (finding) [employer] Work Phone: Start: 07-31-2018 History SDOH Alcohol Frequency 2 [employer] Work Phone: Start: 07-31-2018 History SDOH Alcohol Binge 1 [employer] Work Phone: Start: 07-31-2018 History SDOH Social Connections Phone 5 [facility] Work Phone: Start: 07-31-2018 History SDOH Social Connections Living 3 [employer] Work Phone: Sex Assigned At Not on file [employer] Work Phone: Exposure to SARS-CoV -2 (event) Not sure [employer] Work Phone: Summary Purpose Family History No Family History Records FoundNo Family History Records FoundNo Family History Records FoundNo Family History Records Found Advance Directives No Advanced Directives Records FoundDocuments on File Type Date Recorded 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 [facility]. provides no warranty or guarantee of the accuracy or completeness of information in this document.
== END | disposition home or self-care (01) ==
PROVIDERS: PCP Nurse Practitioner; Referring Provider Otolaryngology; Visit Provider Otolaryngology
DX: D44.0 Neoplasm of uncertain behavior of thyroid gland (principal); R22.1 Localized swelling, mass and lump, neck
CPT/HCPCS: 76536

== ENCOUNTER → 2023-05-08 | Outpatient (CLI) | payer OTHER, SELFPAY ==
--- OUTSIDE RECORDS SUMMARY | 2023-05-08 21:39 | XMS RPT_ITS | CCD ---
Author Name Unknown Address [address] [place] [address] Organization [facility] Care Team Providers Care Counter Waiter Name Role Phone AMBROSIO MILTON Unavailable Unavailable AMBROSIO MILTON Unavailable Unavailable NO REFERRING DR Unavailable Unavailable AMBROSIO MILTON Unavailable Unavailable AMBROSIO MILTON Unavailable Unavailable Adam Valadez Primary Care Provider Allergies Allergy Classification Reported Allergen(s) Allergy Type Date of Onset Reaction(s) Facility (2 sources) Penicillins; Translations: [PENICILLINS] Propensity to adverse reactions to drug (disorder) 1 [facility] Other [place] [facility] Medications Current Medications Medication Drug Class(es) [...] 3 07/24/2019 Active 168 hr ethinyl estradiol 0.29776 mg/hr / norelgestromin 0.24646 mg/hr transdermal system (1 source) Progestin, Estrogen [...] 05-14-2019 Episodic Other aftercare (1 source) Other termite helper (current) drug therapy; Translations: [OTH [facility] CURRENT DR] Onset: 12-02-2016 Episodic Other lower [...] visit by physician Alejandra Christopher Work Phone: [facility] X-Ray Procedures Date Procedure Procedure Detail Performing [...] acute 1 Occurrences starting 06/13/2020 until 06/13/2020 [employer] Work Phone: Payers Date Payer Category Payer Unknown [employer] [address] [id number] 2018-Present [phone] [address] [place] [address] [id number] Unknown [id number] Social History Date Type Detail Facility Start: 06-13-2020 Tobacco smoking stat [facility] Former smoker [employer] Work Phone: End: 11-01-2014 History of tobacco use Current smoker [employer] Work Phone: End: 11-01-2014 History of tobacco use Cigarette Smoker [employer] Work Phone: Start: 06-13-2020 Cigarettes smoked current (pack per day) - Reported [employer] Work Phone: Start: 06-13-2020 Tobacco use and exposure Never used [employer] Work Phone: Start: 06-13-2020 Alcohol intake Current drinke r of alcohol (finding) [employer] Work Phone: Start: 07-31-2018 History SDOH Alcohol Frequency 2 [employer] Work Phone: Start: 07-31-2018 History SDOH Alcohol Binge 1 [employer] Work Phone: Start: 07-31-2018 History SDOH Social Connections Phone 5 [employer] Work Phone: Start: 07-31-2018 History SDOH Social Connections Living 3 [employer] Work Phone: Sex Assigned At Not on file [employer] Work Phone: Exposure to SARS-CoV -2 (event) Not sure [employer] Work Phone: Summary Purpose Family History No Family History Records FoundNo Family History Records FoundNo Family History Records FoundNo Family History Records Found Advance Directives No Advanced Directives Records FoundDocuments on File Type Date Recorded 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 [employer] [facility]. provides no warranty or guarantee of the accuracy or completeness of information in this document.
[2023-05-08 22:18] LABS: T4 Free Direct 0.94 ng/dL (0.76-1.46); Thyroid Stim Hormone (TSH) 1.57 uIU/mL (0.358-3.74)
[2023-05-15 00:07] LABS: EBV Acute VCA IgM < 36.0 U/mL (0.0-35.9); EBV Nuclear Antigen IgG > 600.0 U/mL (0.0-17.9); T3 Reverse 16.1 ng/dL (9.2-24.1); Thyroid Peroxidase AB 11 IU/mL (0-34)
== END | disposition home or self-care (01) ==
PROVIDERS: PCP Nurse Practitioner; Visit Provider Nurse Practitioner
DX: E07.9 Disorder of thyroid, unspecified (principal); R59.1 Generalized enlarged lymph nodes
CPT/HCPCS: 84439; 84443; 84482; 86376; 86664; 86665

== ENCOUNTER → 2023-06-03 | Outpatient (CLI) | payer OTHER, SELFPAY | END | disposition home or self-care (01) | PROVIDERS: PCP Nurse Practitioner; Visit Provider Nurse Practitioner | DX: E07.9 Disorder of thyroid, unspecified (principal) ==

== ENCOUNTER → 2023-06-04 | Outpatient (CLI) | payer OTHER, SELFPAY ==
[2023-06-04 22:05] LABS: PTHIN 46.8 pg/mL (18.4-80.1)
[2023-06-07 04:07] LABS: Thyroid Peroxidase AB 16 IU/mL (0-34)
== END | disposition home or self-care (01) ==
PROVIDERS: PCP Nurse Practitioner; Visit Provider Nurse Practitioner
DX: E04.1 Nontoxic single thyroid nodule (principal); D34 Benign neoplasm of thyroid gland
CPT/HCPCS: 83970; 86376

== ENCOUNTER 2023-12-16 07:30 | Emergency (ER) | payer OTHER, SELFPAY ==
[2023-12-16 07:31] VITALS: BP 143/88; PULSE 103; RESP 16; TEMP 36.9; O2SAT 98; BMI 31.0
--- NOTE | 2023-12-16 07:52 | ED.VIS.BACK ---
HPI History of Present Illness Chief Complaint: Back Detail of Chief Complaint: Left-sided low back pain Informant: patient Onset/Context/Timing Onset: Days (Onset Saturday, December 10) Context: Sudden Onset Chronic pain exacerbated by: Twisting and certain movements Injury: - (Nothing to her knowledge) Timing: Continuous and Waxes and wanes Quality: Dull Location: Lumbar Current Severity: Mild Maximum Severity: Moderate Worsened by: improves with Movement Relieved by: Nothing Associated Symptoms Associated Symptoms: - (Denies saddle anesthesia paresthesia. Denies foot drop.); Negative for Numbness, Tingling, Radiation to Right Leg, Radiation to Left Leg, Fever, Abdominal Pain, Dysuria, Unable to Ambulate, Unable to Transfer, Urinary Retention, Urinary Incontinence, Constipation or Fecal Incontinence Narrative Narrative: Patient is a 33-year-old female who presents with left lower back pain. She has radicular pain. Denies bowel bladder dysfunction. Denies saddle paresthesia anesthesia. She denies foot drop. She denies weakness in her thighs. Patient denies urologic symptoms. Patient states she is presently menstruating. She has no history of renal ureterolithiasis. She denies recent dental procedure. She denies fever, chills night sweats. Prior similar symptoms: No Recent Illness/Hospitalization: No PFSH PFS Medical History COVID-19 Asthma Anxiety Weight gain Home Medications ?Medication ?Instructions ?Recorded ?Last Taken ?Type desogestrel 0.15 mg-ethinyl 1 tab PO QDAY #84 tabs 03/22/21 Unknown Rx estradiol 0.03 mg tablet (Apri) inhalational spacing device #1 ea 01/30/22 Unknown Rx (Aerochamber MV spacer) albuterol sulfate 90 mcg/actuation 2 puff inhalation Q6H PRN 08/28/22 Unknown Rx aerosol inhaler shortness of breath or wheezing #8.5 grams escitalopram oxalate 10 mg tablet 10 mg PO DAILY #30 tabs 01/17/23 Unknown Rx hydroxyzine HCl 10 mg tablet 10 mg PO TID-QID PRN anxiety #30 04/11/23 Unknown Rx tabs azithromycin 250 mg tablet 250 mg PO .COMPLEX #12 tabs 08/13/23 Unknown Rx benzonatate 200 mg capsule 200 mg PO TID PRN cough #20 caps 08/13/23 Unknown Rx Allergy/AdvReac Type Severity Reaction Status Date / Time Penicillins Allergy Rash Verified 12/16/23 07:31 Family History Mother Endometriosis Grandmother Endometriosis Surgical History History of lymph node biopsy Hx of tonsillectomy History of tubal ligation History of cholecystectomy Social History household members: significant other and children number of children: 2 current occupational status: employed 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 [email or web address] history of recent travel: No sexually active: Yes Smoking Status: Former smoker alcohol intake: current alcohol intake frequency: a few times a month substance use type: does not use what type of physical activity do you participate in: walking seatbelt use: always do you feel safe at home: Yes additional social history: - Azael CASTAÑEDA ROS ED Constitutional Constitutional ED: Denies chills, fever(s), subjective or sweats ENT ENT ED: Denies ear pain, rhinorrhea or sore throat Cardiovascular Cardiovascular: Denies chest pain or palpitations Respiratory/Chest Respiratory/Chest: Denies dyspnea or dyspnea on exertion Gastrointestinal Gastrointestinal: Denies abdominal pain, nausea or vomiting Genitourinary Genitourinary ED: Reports LMP (females 10-50) Details: Comment: (Presently); Denies dysuria, hematuria or urinary frequency Musculoskeletal Musculoskeletal: Reports back pain; Denies arthralgias, myalgias or neck pain Integumentary Denies rash Neurologic Neurologic: Denies paresthesias EXAM Physical Exam Const Vital Signs: 12/16/23 07:31 Temperature 98.4 F Temperature Source Oral Pulse Rate 103 H Respiratory Rate 16 Blood Pressure 143/88 H Blood Pressure Mean 106 Pulse Ox 98 Oxygen Delivery Method Room Air Positive well nourished and well developed General Appearance ED: well developed and NAD HEENT Reports moist mucous membranes HEENT Narrative: Atraumatic normocephalic. Ears normal. Nares patent. Eyes PERRL and EOMs intact bilaterally General Eye ED: Negative for pale conjunctiva or scleral icterus Neck no lymphadenopathy and supple Resp normal respiratory effort and clear to auscultation bilaterally Cardio regular rate, regular rhythm, S1 normal heart sound, S2 normal heart sound and no murmurs GI normal to inspection, nondistended, normoactive bowel sounds, soft to palpation, non-tender, non-distended and no masses Back/Spine normal to inspection and no thoracic nor lumbar tenderness Back/Spine Narrative: EHLs intact bilateral. PT DP pulses 2+ bilaterally. Patella and ankle reflex are 2+ and symmetric. There is no clonus or Babinski sign. Gait observed and normal. No foot drop. Able to walk on heels and toes. Able to perform 1 legged squat right and left. Bending to the left causes discomfort in the left. Bending to the right causes no discomfort. Flexion causes no discomfort. Extension causes discomfort. Twisting to the right and left causes discomfort on the left. Cervical Spine: Negative for cervical spine tenderness Lumbar Spine / Lower Back: straight leg raise negative bilaterally; Negative for ROM limited Extremity normal to inspection and no clubbing, cyanosis or edema General Extremety ED: Negative for tenderness Neuro oriented x3 Sensorium / Orientation: alert Motor Exam: strength 5/5 throughout Deep Tendon Reflexes: Rt Patellar (L4): 2+, Lt Patellar (L4): 2+, Rt Ankle (S1): 2+ and Lt Ankle (S1): 2+ Deep Tendon Reflexes Back: Rt Patellar (L4): 2+, Lt Patellar (L4): 2+, Rt Ankle (S1): 2+ and Lt Ankle (S1): 2+ Plantar Reflex: Downgoing: bilateral Psych mental status grossly normal Skin no rashes or lesions noted and no wounds MDM MDM MDM Narrative Medical decision making narrative: Patient's history and physical consistent with muscular low back pain. In my opinion there is no concern for cauda equina, epidural hematoma or abscess. There is no concern for acute herniated disc either. Since her no history of diabetes hypertension renal disease or peptic ulcer disease treatment is NSAIDs ice. My opinion imaging and laboratory testing is not warranted. History & Record Review Additional record(s) reviewed:: Prior ED visit (January 2022 for asthma and May 2017 for back pain.) Discharge Plan Triage Chief Complaint: Back ED Provider: Dorian Lloyd Dx/Rx/DC Orders Clinical Impression: Acute left-sided low back pain, Adult BMI 31.0-31.9 kg/sq m Instructions: ED Back and Neck Pain, General Prescriptions: No Action desogestrel-ethinyl estradiol [Apri] 0.15-0.03 mg tablet 1 tab PO QDAY Qty: 84 4RF azithromycin 250 mg tablet 250 mg PO .COMPLEX Qty: 12 0RF Rx Instructions: 2 tablets (500 mg) on day 1, then 1 tablet daily on days 2 through 11 benzonatate 200 mg capsule 200 mg PO TID PRN (Reason: cough) Qty: 20 0RF escitalopram oxalate 10 mg tablet 10 mg PO DAILY Qty: 30 12RF hydroxyzine HCl 10 mg tablet 10 mg PO TID-QID PRN (Reason: anxiety) Qty: 30 12RF (DME) Aerochamber MV Spacer See Rx Instructions .Route Qty: 1 0RF Rx Instructions: As directed albuterol sulfate 90 mcg/actuation HFA aerosol inhaler 2 puff INHALATION Q6H PRN (Reason: shortness of breath or wheezing) Qty: 8.5 12RF Primary Care Provider: Gabbie Cortez NP Referrals: Gabbie Cortez NP, [facility] [Primary Care Provider] - 1 Week if not improving Activity Restrictions/Additional Instructions: 1. Apply ice 6 times a day for the next several days 2. You may take either 4 ibuprofen tablets every 8 hours or 2 Aleve tablets every 12 hours for the next 3 to 5 days for discomfort. Print Language: [place] Disposition Disposition: Home, Self Care
[2023-12-16 08:02] VITALS: BP 142/87; PULSE 81; RESP 17; TEMP 36.6; O2SAT 97
== END 2023-12-16 08:05 | disposition home or self-care (01) ==
PROVIDERS: Emergency Provider Emergency Medicine; PCP Nurse Practitioner; Visit Provider Emergency Medicine
DX: M54.50 Low back pain, unspecified (principal); Z87.891 Personal history of nicotine dependence; Z86.16 Personal history of COVID-19; F41.9 Anxiety disorder, unspecified; J45.909 Unspecified asthma, uncomplicated; Z98.51 Tubal ligation status; Z90.49 Acquired absence of other specified parts of digestive tract
CPT/HCPCS: 99282

== ENCOUNTER → 2024-08-08 | Outpatient (CLI) | payer OTHER, SELFPAY ==
[2024-08-08 09:21] LABS: Free T3 2.4 pg/mL (2.18-3.98)
[2024-08-08 09:26] LABS: CRP < 3.00 mg/L (0.0-3.0)
[2024-08-09 07:07] LABS: HOMOCYSTEINE 13.4 umol/L (0.0-14.5)
== END | disposition home or self-care (01) ==
LOC: LAB 08:00
PROVIDERS: PCP Nurse Practitioner
DX: A69.20 Lyme disease, unspecified (principal); E03.9 Hypothyroidism, unspecified; E72.11 Homocystinuria; E72.12 Methylenetetrahydrofolate reductase deficiency; E27.49 Other adrenocortical insufficiency; I25.10 Atherosclerotic heart disease of native coronary artery without angina pectoris
CPT/HCPCS: 36415; 82533; 83090; 84439; 84443; 84481; 84482; 86140; 86376; 86617